=== PATIENT | female | born 1980 | race Caucasian/White ===

== ENCOUNTER 2021-09-02 16:34 | Emergency (ER) | payer MEDICAID, SELFPAY ==
[2021-09-02 16:36] VITALS: BP 119/64; PULSE 135; RESP 22; TEMP 35.7; O2SAT 100; BMI 23.1
--- NOTE | 2021-09-02 16:56 | EKG12_ITS ---
Test Reason : DIZZY Blood Pressure : / mmHG Vent. Rate : 110 BPM Atrial Rate : 110 BPM P-R Int : 122 ms QRS Dur : 090 ms QT Int : 358 ms P-R-T Axes : 077 040 065 degrees QTc Int : 484 ms Sinus tachycardia Otherwise normal ECG Confirmed by PRINCE DIXON, ABIGAIL ([id number]), city editor MICH CASTELLANO ([id number]) on 09/05/2021 10:48:26 AM Referred By: Confirmed By:ABIGAIL MORRISON MD
--- NOTE | 2021-09-02 17:09 | EX.ED.DYSGE1 ---
HPI History of Present Illness Chief Complaint: Dizziness Detail of Chief Complaint: Lightheadedness, total body tingling, nausea vomiting, shortness of breat Informant: patient Onset/Context/Timing Onset: Today Context: Sudden Onset Timing: Continuous (The shortness of breath and tingling are continuous. Nausea and vomiting is intermittent) Quality: Shortness of breath nausea vomiting Location: Respiratory, GI and generalized Current Severity: Moderate Maximum Severity: Severe Worsened by: Nothing Relieved by: Patient states she gets Benadryl when she is taken to [facility] Associated Symptoms Associated Symptoms: No infectious symptoms Narrative Narrative: Patient is a 41-year-old woman status post gastric bypass surgery who presents with muscle spasms of her hand, shortness of breath, total body tingling with nausea and vomiting. Patient did have a history of type 2 diabetes related to obesity. Since she is no longer obese she no longer has type 2 diabetes. She denies fever, chills night sweats. She denies ocular, visual auditory symptoms. She denies cough. Denies pleuritic chest pain. Denies history of VTE. She does report diarrhea. She has had no ill contacts. She denies urologic symptoms. Prior similar symptoms: Yes Recent Illness/Hospitalization: No PFSH PFSH Home Medications benzonatate 200 mg PO TID PRN PRN #20 capsule 01/03/16 [Rx Last Taken Unknown] doxycycline hyclate 100 mg PO BID #20 capsule 01/03/16 [Rx Last Taken Unknown] buspirone 5 mg PO DAILY 09/02/21 [History Last Taken Unknown] ondansetron 4 mg PO Q8H PRN PRN #10 tab 09/02/21 [Rx Last Taken Unknown] sertraline 50 mg PO QHS 09/02/21 [History Last Taken Unknown] Allergy/AdvReac Type Severity Reaction Status Date / Time No Known Allergies Allergy Verified 09/02/21 16:36 Surgical History (Updated 09/02/21 @ 17:32 by Lynnette Zhang) History of gastric bypass Social History (Updated 09/02/21 @ 17:[address] Amilcar Rhodes MD) household members: none Smoking Status: Never smoker alcohol intake: current Alcohol type: other ROS ROS ED Constitutional Constitutional ED: Reports weight loss; Denies chills, fever(s), subjective or sweats Eyes Eyes: Denies blurry vision, change in vision or diplopia ENT ENT ED: Denies ear pain, rhinorrhea or sore throat Cardiovascular Cardiovascular: Denies chest pain, orthopnea, palpitations, paroxysmal nocturnal dyspnea or racing heartbeat Respiratory/Chest Respiratory/Chest: Reports dyspnea; Denies cough, dyspnea on exertion, orthopnea, paroxysmal nocturnal dyspnea or sputum Gastrointestinal Gastrointestinal: Reports diarrhea, nausea and vomiting; Denies abdominal pain, constipation or melena Genitourinary Genitourinary ED: Denies dysuria, hematuria or urinary frequency Musculoskeletal Musculoskeletal: Denies arthralgias, back pain, myalgias or neck pain Neurologic Neurologic: Reports paresthesias; Denies headache(s) or weakness Endocrine Endocrinology: Denies polydipsia, polyphagia or polyuria Hematologic/Lymphatic Hematologic/Lymphatic: Denies anemia, easy bleeding or easy bruising EXAM Physical Exam Const Vital Signs: 09/02/21 16:36 09/02/21 17:32 09/02/21 19:21 Temperature 96.2 F L Temperature Source Temporal Pulse Rate 135 H 89 Respiratory Rate 22 H 15 Respiratory Effort Normal Non-Labored Respiratory Pattern Normal Blood Pressure 119/64 Blood Pressure Mean 82 Pulse Ox 100 Oxygen Delivery Method Room Air Positive well nourished and well developed; Negative for obese, cachectic, contractures or unkempt General Appearance ED: well developed and pallor; Negative for unkempt, cachectic, contractures, cyanotic or diaphoretic Nutritional Appearance: Negative for cachectic or obese HEENT HEENT Narrative: Head is atraumatic normocephalic. Ears normal. Nares patent. Posterior pharynx unremarkable. Mucosa is dry. Eyes PERRL and EOMs intact bilaterally General Eye ED: Negative for pale conjunctiva or scleral icterus Neck no lymphadenopathy, supple and No no JVD Resp normal respiratory effort and clear to auscultation bilaterally Cardio regular rhythm, S1 normal heart sound, S2 normal heart sound and no murmurs Rate: tachycardic GI normal to inspection, nondistended, normoactive bowel sounds and non-tender Palpation: soft Back/Spine no CVA tenderness Cervical Spine: Negative for cervical spine tenderness Thoracic Spine / Upper Back: Negative for thoracic spinal tenderness or paraspinal muscle tenderness Extremity normal to inspection General Extremety ED: Negative for edema or tenderness General Extremity: Negative for edema Neuro oriented x3, CN's II-XII intact bilaterally and no sensory deficits noted Neuro Narrative: DTR are brisk. Patient has 4 beats of clonus at the ankles. Negative Babinski sign. Positive's Chvostek sign. Positive Trousseau sign. Sensorium / Orientation: alert Motor Exam: strength 5/5 throughout Psych mental status grossly normal Appearance: Negative for unkempt Skin no rashes or lesions noted and no wounds General Skin Exam: jaundice and pallor; Negative for elasticity normal MDM MDM MDM Narrative Medical decision making narrative: Does have symptoms of hyperventilation. In light of prior history of gastric bypass surgery need to rule out electrolyte abnormality as cause. Psychogenic cause infectious cause will obtain appropriate blood work to assess. She was treated with Zofran for her nausea and vomiting and clinically she appears dehydrated. 1 L of normal saline was ordered. Patient reports persistent nausea. She has had no further vomiting in the emergency department. She had no diarrhea during her stay. Lab Data Attestation: I reviewed the patient's lab results. Lab results narrative: Glucose is slightly evaded 130. Lipase is normal. CBC is unremarkable. Labs: Laboratory Results - last 24 hr 09/02/21 09/02/21 09/02/21 17:15 17:15 17:30 WBC 9.4 RBC 4.66 Hgb 13.5 Hct 40.8 MCV 87.6 MCH 29.0 MCHC 33.1 RDW Std Deviation 42.8 RDW Coeff of [place] 13.5 Plt Count 328 MPV 10.4 Immature Gran % (Auto) 0.500 Neut % (Auto) 75.0 H Lymph % (Auto) 18.0 L [place] % (Auto) 5.9 Eos % (Auto) 0.1 Baso % (Auto) 0.5 Absolute Neuts (auto) 7.1 Absolute Lymphs (auto) 1.70 Nucleated RBC % 0 Sodium Cancelled Potassium Cancelled Chloride Cancelled Carbon Dioxide Cancelled Anion Gap Cancelled BUN Cancelled Creatinine Cancelled Estim Creat Clear Calc Cancelled Est GFR (MDRD) Af Amer Cancelled Est GFR (MDRD) Non-Af Cancelled BUN/Creatinine Ratio Cancelled Glucose Cancelled Calcium Cancelled Total Bilirubin Cancelled AST Cancelled ALT Cancelled Alkaline Phosphatase Cancelled Total Protein Cancelled Albumin Cancelled Globulin Cancelled Albumin/Globulin Ratio Cancelled Lipase 60 L 09/02/21 17:32 WBC RBC Hgb Hct MCV MCH MCHC RDW Std Deviation RDW Coeff of [place] Plt Count MPV Immature Gran % (Auto) Neut % (Auto) Lymph % (Auto) [place] % (Auto) Eos % (Auto) Baso % (Auto) Absolute Neuts (auto) Absolute Lymphs (auto) Nucleated RBC % Sodium 137 Potassium 3.5 Chloride 101 Carbon Dioxide 23.0 Anion Gap 13 BUN 18 Creatinine 0.85 Estim Creat Clear Calc 84.70 Est GFR (MDRD) Af Amer 95 Est GFR (MDRD) Non-Af 78 BUN/Creatinine Ratio 21.2 H Glucose 130 H Calcium 9.0 Total Bilirubin 0.50 AST 43 H ALT 29 Alkaline Phosphatase 71 Total Protein 8.0 Albumin 3.8 Globulin 4.2 Albumin/Globulin Ratio 0.9 Lipase Discharge Plan Triage Chief Complaint: Dizziness ED Provider: Amilcar Rhodes Dx/Rx/DC Orders Clinical Impression: Abdominal pain, vomiting, and diarrhea, Dehydration, mild, Alcohol consumption binge drinking Instructions: ED Dehydration (Adult), ED Vomiting and Diarrhea ... Prescriptions: New ondansetron [ondansetron] 4 MG tablet 4 mg PO Q8H PRN PRN (Reason: Nausea) Qty: 10 RF: 0 No Action doxycycline hyclate 100 MG capsule 100 mg PO BID Qty: 20 RF: 0 benzonatate 100 MG capsule 200 mg PO TID PRN PRN (Reason: Cough) Qty: 20 RF: 0 buspirone 5 mg tablet 5 mg PO DAILY RF: 0 sertraline 50 mg tablet 50 mg PO QHS RF: 0 Primary Care Provider: Care Physician,No Primary Referrals: Care Physician,No Primary [Primary Care Provider] - Doctor,Your [STAFF PHYSICIAN] - 3-5 Days if not improving Disposition Disposition: Home, Self Care
[2021-09-02 17:36] LABS: Absolute Neutrophil Count 7.1 X10^3/uL (2.0-7.7); Basophil# 0.05 X10^3/uL; Basophil% 0.5 % (0-1); Eosinophil# 0.01 X10^3/uL; Eosinophils% 0.1 % (0-5); Hematocrit 40.8 % (37-47); Hemoglobin 13.5 g/dL (12.0-15.0); Mean Corp Hgb Conc 33.1 g/dL (32-36); Mean Corpuscular Volume 87.6 fL (81-99); Mean Platelet Vol. 10.4 fl (6.2-12.0); Monocyte# 0.56 X10^3/uL; Monocyte% 5.9 % (0-10); NRBC Flagged by Analyzer 0 % (0-5); Neutrophil # 7.07 X10^3/uL (2.7-7.7); Platelet Count 328 K/mm3 (150-450); RBC Distribution Width CV 13.5 % (11.6-14.6); RBC Distribution Width SD 42.8 fl (35.1-43.9); Red Blood Count 4.66 M/mm3 (4.2-5.4); White Blood Count 9.4 K/mm3 (4.4-11.0)
[2021-09-02] MEDS: Ondansetron 4 MG/2 ML Vial IV (17:52)
[2021-09-02] MEDS: 0.9% Normal Saline 1,000 ML 1000 ML IV (17:52)
[2021-09-02 18:22] LABS: Lipase 60 U/L (73-393)
[2021-09-02 19:05] LABS: ALB/GLOB Ratio 0.9 RATIO (0.9-2.4); AST(SGOT) 43 U/L (15-37); Alanine Aminotransfer ALT/SGPT 29 U/L (13-56); Albumin, Serum 3.8 g/dL (3.2-5.0); Alkaline Phosphatase 71 U/L (45-117); BUN 18 mg/dL (7-18); BUN/Creat Ratio 21.2 RATIO (10-20); Creatinine, Serum 0.85 mg/dL (0.55-1.02); EST Glomerular Filtration Rate 78 mL/min (>60); Est Glom Filt Rate - Afr Amer 95 mL/min (>60); Globulin 4.2 g/dL (2.2-4.2); Glucose 130 mg/dL (74-106); Sodium Level 137 mmol/L (136-145)
[2021-09-02 19:06] LABS: Anion Gap 13 (5-15); Chloride 101 mmol/L (98-107); Potassium 3.5 mmol/L (3.5-5.1)
[2021-09-02 19:21] VITALS: PULSE 89; RESP 15
[2021-09-02] MEDS: Metoclopramide 10 MG/2 ML Vial 5 MG IV (19:48)
[2021-09-02] MEDS: Acetaminophen 500 MG Tablet PO (19:48)
[2021-09-02 20:39] VITALS: RESP 12; O2SAT 97
== END 2021-09-02 20:40 | disposition home or self-care (01) ==
PROVIDERS: Emergency Provider Emergency Medicine
DX: E86.0 Dehydration (principal); R10.9 Unspecified abdominal pain; R19.7 Diarrhea, unspecified; R11.2 Nausea with vomiting, unspecified; Z98.84 Bariatric surgery status; Z72.89 Other problems related to lifestyle
CPT/HCPCS: 80053; 83690; 85025; 93005; 96361; 96374; 96375; 99285; J7030; A4216; J2405

== ENCOUNTER → 2024-05-02 | Outpatient (CLI) | payer MEDICAID, SELFPAY ==
--- NOTE | 2024-05-02 08:11 | BI_ITS ---
MAMMOGRAPHY - UNILATERAL SCREENING: LEFT BREAST REASON FOR EXAM: Female, 43 years old. Routine annual screening examination (unilateral). PERTINENT HISTORY: Non-contributory. TECHNIQUE: Digital examination. Mediolateral oblique (MLO) and craniocaudad (CC) views of the breast were obtained. CAD: CAD was performed on this study. COMPARISON: 11/06/2019 FINDINGS: Breast Composition: The breasts are heterogeneously dense, which may obscure small masses. No dominant mass. Increase in the number of the grouped punctate calcifications in the lower inner quadrant of the left breast at mid depth magnification views are recommended for further evaluation. No other significant abnormalities are identified. BI/SCREEN MAMM (CAD) W/JULIETH UNI L IMPRESSION: Further imaging evaluation recommended, as described above. ASSESSMENT CATEGORY: BIRADS Category 0: Incomplete. Need additional imaging evaluation. A letter regarding these results will be sent to the patient by the facility within 30 days. FOLLOW UP RECOMMENDATION: Additional Views are Recommended. (E) [id number] Approximately 10% of breast cancers are not detected by mammography. A normal mammogram should not delay biopsy of a clinically suspicious abnormality. [id number] Electronically Signed: Al Gutierrez MD at 13:31 EDT ,
== END | disposition home or self-care (01) ==
LOC: OPBI 08:10
PROVIDERS: PCP Internal Medicine; Referring Provider Internal Medicine Medical Oncology; Visit Provider Internal Medicine Medical Oncology
DX: Z12.31 Encounter for screening mammogram for malignant neoplasm of breast (principal); Z85.3 Personal history of malignant neoplasm of breast
CPT/HCPCS: 77063; 77067

== ENCOUNTER → 2024-05-20 | Outpatient (CLI) | payer MEDICAID, SELFPAY ==
--- NOTE | 2024-05-20 09:01 | BI_ITS ---
MAMMOGRAPHY - UNILATERAL DIAGNOSTIC: LEFT BREAST REASON FOR EXAM: Female, 43 years old. Abnormal screening mammogram. PERTINENT HISTORY: Personal history of breast cancer. Prior right mastectomy with a TRAM flap reconstruction. History of prior left breast reduction and lift. TECHNIQUE: Compression magnification views were obtained. CAD: Full Field Digital Mammography with Computer Added Detection was performed. COMPARISON: Comparison is made with prior study dated May 02, 2024. FINDINGS: Breast Composition: The breasts are heterogeneously dense, which may obscure small masses. The group of microcalcifications are once again visualized. These may represent dystrophic calcifications although biopsy is recommended. No other significant abnormalities are identified. BI/DIAG MAMM W/CAD, UNILAT IMPRESSION: Persistent group of microcalcifications as described in the lower inner quadrant of the left breast. Biopsy recommended. ASSESSMENT CATEGORY: BIRADS Category 4: Suspicious - Biopsy Should Be Considered. A letter regarding these results will be sent to the patient by the facility within 30 days. Approximately 10% of breast cancers are not detected by mammography. A normal mammogram should not delay biopsy of a clinically suspicious abnormality. Electronically Signed: Doug Breaux MD at 9:48 EDT ,
== END | disposition home or self-care (01) ==
LOC: OPBI 09:01
PROVIDERS: PCP Internal Medicine; Referring Provider Internal Medicine Medical Oncology; Visit Provider Internal Medicine Medical Oncology
DX: R92.8 Other abnormal and inconclusive findings on diagnostic imaging of breast (principal); Z90.11 Acquired absence of right breast and nipple; Z85.3 Personal history of malignant neoplasm of breast
CPT/HCPCS: 77065

== ENCOUNTER 2024-09-23 11:04 | Emergency (ER) | payer MEDICAID, SELFPAY ==
[2024-09-23 11:06] VITALS: BP 141/111; PULSE 100; RESP 20; TEMP 37.4; O2SAT 98; BMI 28.1
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
[2024-09-23 11:16] VITALS: O2SAT 98
--- NOTE | 2024-09-23 11:47 | ED.RN ---
PHOTOGRAPHS TAKEN PER [employer]
--- NOTE | 2024-09-23 11:57 | CT_ITS ---
INDICATION: trauma/strangulation/ASSAULT EXAMINATION: CT NECK WITH CONTRAST - CT Soft Tissue Neck W/ Contrast Injection TECHNIQUE: Helically acquired images were obtained of the neck following IV contrast. The protocol utilizes one or more of the following dose reduction techniques: automated exposure control, adjustment of mA and/or kV according to patient size,and/or use of iterative reconstruction technique. IV Contrast dosage and agent: 100 cc of Isovue-370 RADIATION DOSAGE (If Supplied By Facility): CTDIvol = ( 13.03 ) mGy, DLP = ( 449.34 ) mGycm COMPARISON: No relevant prior comparison study available FINDINGS: NASOPHARYNX: Unremarkable. SUPRAHYOID NECK: Unremarkable oropharynx, oral cavity, parapharyngeal space, and retropharyngeal space. INFRAHYOID NECK: Unremarkable larynx, hypopharynx, and supraglottis. THYROID: There is a too small to characterize low-attenuation focus within the left lobe of the thyroid gland may reflect a cyst. SALIVARY GLANDS: Unremarkable. LYMPH NODES: No cervical or supraclavicular lymphadenopathy. VASCULAR STRUCTURES: Unremarkable. VISUALIZED PORTIONS OF THE ORBITS, PARANASAL SINUSES, MASTOID AIR CELLS AND SKULL BASE: Unremarkable. BONES: There are postsurgical changes of C4-T1 with multilevel pedicle screws, posterior spinal rods and multilevel laminectomies. There is multilevel endplate spondylosis. THORACIC INLET: There is a separate dedicated CT report of the chest. CT/Soft Tissue Neck WITH Contrast IMPRESSION: No acute process identified. Multilevel postsurgical changes of the cervical spine. Electronically Signed: Connie Zayas MD at 14:23 EST ,
--- NOTE | 2024-09-23 11:57 | CT_ITS ---
INDICATION: trauma/ASSAULT EXAMINATION: CT BRAIN - CT Head or Brain W/O Contrast Injection TECHNIQUE: Multiple axial images were obtained of the head without intravenous contrast. The protocol utilizes one or more of the following dose reduction techniques: automated exposure control, adjustment of mA and/or kV according to patient size,and/or use of iterative reconstruction technique. IV Contrast dosage and agent: None. RADIATION DOSAGE (If Supplied By Facility): CTDIvol = ( 44.99 ) mGy, DLP = ( 796.11 ) mGycm COMPARISON: No relevant prior comparison study available FINDINGS: BRAIN PARENCHYMA: No intra- or extra-axial hemorrhage. No evidence of acute infarct. No intracranial mass or mass effect. There is preservation of the [place]/white matter interface. Posterior fossa structures are unremarkable. CSF SPACES: Appropriate for age. No hydrocephalus. Basal cisterns are patent. CALVARIUM, SKULL BASE, PARANASAL SINUSES AND MASTOID AIR CELLS: Clear. No discrete lytic or blastic abnormalities. There is mild right facial subcutaneous edema. ORBITS: Both globes, extraocular muscles, optic nerves and retrobulbar fat appear unremarkable. CT/Brain/Head without Contrast IMPRESSION: No acute intracranial process. Electronically Signed: Connie Zayas MD at 14:09 EST ,
--- NOTE | 2024-09-23 11:57 | CT_ITS ---
INDICATION: trauma/ASSAULT EXAMINATION: CT CHEST WITH CONTRAST - CT Chest W/ Contrast Injection TECHNIQUE: Helically acquired images were obtained of the chest following IV contrast. The protocol utilizes one or more of the following dose reduction techniques: automated exposure control, adjustment of mA and/or kV according to patient size,and/or use of iterative reconstruction technique. IV Contrast dosage and agent: 100 cc of Isovue-370 RADIATION DOSAGE (If Supplied By Facility): CTDIvol = ( 6.24 ) mGy, DLP = ( 168.33 ) mGycm COMPARISON: November 26, 2013 FINDINGS: LUNGS, PLEURA AND LARGE AIRWAYS: There is atelectasis and/or scarring within the right upper lobe. No pleural effusion or thickening. No pneumothorax. THYROID: No thyroid lesions. HEART AND PERICARDIUM: Heart size is normal. No pericardial effusion. There are no coronary artery calcifications. VESSELS: Thoracic aorta is not dilated. No aortic dissection. No obvious central pulmonary embolism although this study was not performed with the pulmonary embolism protocol. MEDIASTINUM AND JAY: No mediastinal or hilar adenopathy. Esophagus is unremarkable. No hiatal hernia. There are postsurgical changes of the right breast. UPPER ABDOMEN: The limited images of the upper abdomen demonstrate a diffusely low in attenuation liver fatty infiltration. There are postsurgical changes of the stomach. BONES: There is a left lateral fifth rib deformity consistent with an old fracture. There are healing left posterior ninth and 10th rib fractures. There is a right lateral rib deformity consistent with an old fracture. CT/Chest WITH Contrast IMPRESSION: No acute cardiopulmonary process. Bilateral rib fractures of varying chronicity including healing left ninth and 10th rib fractures. Fatty infiltration of the liver. Electronically Signed: Connie Zayas MD at 14:32 EST ,
--- NOTE | 2024-09-23 11:57 | CT_ITS ---
INDICATION: trauma/ASSAULT EXAMINATION: CT FACIAL BONES - CT Maxillofacial W/O Contrast Injection TECHNIQUE: Helically acquired images were obtained of the facial bones. A radiation dose optimization technique was used for this scan. The protocol utilizes one or more of the following dose reduction techniques: automated exposure control, adjustment of mA and/or kV according to patient size,and/or use of iterative reconstruction technique. IV Contrast dosage and agent: None. RADIATION DOSAGE (If Supplied By Facility): CTDIvol = ( 29.38 ) mGy, DLP = ( 510.73 ) mGycm COMPARISON: Head CT dated September 23, 2024 FINDINGS: SOFT TISSUES: There is mild right facial subcutaneous swelling. No discrete fluid collections. VISUALIZED PARANASAL SINUSES: Clear. VISUALIZED MASTOID AIR CELLS: Clear. FACIAL BONES, MANDIBLE AND TMJs: No displaced facial bone fracture. No lytic or blastic abnormality. There is a plate and screw fixation device within the anterior mandible. VISUALIZED DENTITION: No periodontal osseous erosion. ORBITAL CONTENTS: Both globes, extraocular muscles and retrobulbar fat appear unremarkable. CT/Sinus/Facial Bone IMPRESSION: No acute osseous injury. Right facial subcutaneous edema. Electronically Signed: Connie Zayas MD at 14:13 EST ,
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
[2024-09-23 12:36] LABS: Absolute Lymphocyte Count 0.36 X10^3/uL (0.83-4.51); Absolute Neutrophil Count 7.3 X10^3/uL (2.0-7.7); Basophil# 0.02 X10^3/uL; Basophil% 0.2 % (0-1); Hematocrit 37.5 % (37-47); Hemoglobin 12.8 g/dL (12.0-15.0); Lymphocyte # 0.36 X10^3/ul (0.83-4.51); Lymphocyte % 4.5 % (19-41); Mean Corp Hgb Conc 34.1 g/dL (32-36); Mean Corpuscular Hgb 31.1 pg (27.0-32.0); Mean Corpuscular Volume 91.2 fL (81-99); Mean Platelet Vol. 9.2 fl (6.2-12.0); Monocyte# 0.26 X10^3/uL; Monocyte% 3.2 % (0-10); NRBC Flagged by Analyzer 0 % (0-5); Neutrophil # 7.33 X10^3/uL (2.7-7.7); Neutrophil % 91.6 % (47-70); POSITIVE DIFFERENTIAL YES; Platelet Count 179 K/mm3 (150-450); RBC Distribution Width CV 14.7 % (11.6-14.6); Red Blood Count 4.11 M/mm3 (4.2-5.4)
[2024-09-23 12:52] LABS: Internal QC Validated? YES +Cl - CLEAR BKGD; Pregnancy, Serum, hCG Quali. NEGATIVE Negative
[2024-09-23 12:54] LABS: AST(SGOT) 28 U/L (15-37); Alanine Aminotransfer ALT/SGPT 18 U/L (13-56); Albumin, Serum 3.6 g/dL (3.2-5.0); Alkaline Phosphatase 90 U/L (45-117); Anion Gap 11 (5-15); BUN 14 mg/dL (7-18); Bilirubin, Direct 0.36 mg/dL (0.00-0.30); Calcium,Total 8.2 mg/dL (8.5-10.1); Chloride 96 mmol/L (98-107); Creatinine, Serum 0.52 mg/dL (0.55-1.02); EST Glomerular Filtration Rate 136 mL/min (>60); Est Glom Filt Rate - Afr Amer 165 mL/min (>60); Estimated Creatinine Clearance 151.69 ml/min; Globulin 4.1 g/dL (2.2-4.2); Glucose 105 mg/dL (74-106); Potassium 3.4 mmol/L (3.5-5.1); Protein, Total 7.7 g/dL (6.4-8.2); Sodium Level 134 mmol/L (136-145)
[2024-09-23 13:05] VITALS: BP 136/89; PULSE 104; RESP 20; O2SAT 98
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
--- NOTE | 2024-09-23 13:20 | RAD_ITS ---
INDICATION: injury EXAMINATION/TECHNIQUE: X-RAY - RIGHT XR Hand Min 3 Views 3 VIEWS COMPARISON: No relevant prior comparison study available FINDINGS: SOFT TISSUES: No soft tissue swelling or gas. No radiopaque foreign body. BONES/JOINTS: No acute fracture or subluxation.. Normal alignment. Preservation of the joint space.. No sclerotic or destructive changes observed. RAD/Hand Min 3 Views IMPRESSION: No acute osseous injury. Electronically Signed: Connie Zayas MD at 14:15 EST ,
[2024-09-23] MEDS: Acetaminophen 500 MG Tablet 1000 MG PO (13:31)
[2024-09-23] MEDS: Ondansetron ODT 4 MG Tablet PO (13:31)
[2024-09-23 13:52] LABS: Mucous, Urine 0 SEEN /hpf (<or=2+); Red Blood Cells-Urine 0 SEEN /hpf (0-5)
[2024-09-23 13:54] LABS: Color, Urine Yellow (Yellow); Glucose, Dipstick Normal (Normal); Leukocyte Esterase-Dipstick 100 /ul (Negative); Nitrite-Dipstick Positive (Negative); Occult Blood-Urine 10 /ul (Negative); Protein-Dipstick 15 mg/dl (Negative); Specific Gravity, Urine 1.005 (1.002-1.030); Urine Bilirubin Dipstick Negative (Negative); Urine Clarity Sl. Cloudy (Clear); Urine Urobilinogen 1 mg/dl (Normal)
[2024-09-23 13:56] LABS: Ketone-Dipstick 150 mg/dl (Negative)
[2024-09-23 14:02] LABS: White Blood Cells 10-25 SEEN /hpf (0-5)
[2024-09-23 14:03] LABS: Bacteria 1+ /hpf (None Seen); Squamous Epithelial Cells - UA 0-5 SEEN /hpf (5-10)
[2024-09-23 15:13] VITALS: BP 117/74; PULSE 65; RESP 18; TEMP 36.4; O2SAT 96
== END 2024-09-23 15:15 | disposition home or self-care (01) ==
PROVIDERS: Emergency Provider Emergency Medicine; PCP Internal Medicine; Visit Provider Emergency Medicine
DX: S00.83XA Contusion of other part of head, initial encounter (principal); N39.0 Urinary tract infection, site not specified; S60.221A Contusion of right hand, initial encounter; M54.2 Cervicalgia; Y04.8XXA Assault by other bodily force, initial encounter; Z79.899 Other long term (current) drug therapy
CPT/HCPCS: 70450; 70486; 70491; 71260; 73130; 80048; 80076; 81001; 84703; 85025; 87077; 87086; 87088; 87186; 99285; Q9967; A4216

== ENCOUNTER → 2024-10-02 | Outpatient (CLI) | payer MEDICAID, SELFPAY ==
--- NOTE | 2024-10-02 12:24 | US_ITS ---
STUDY: ULTRASOUND BREAST - LEFT REASON FOR EXAM: Female, 44 years old. Abnormal screening mammogram. Left breast pain. History of prior breast reduction surgery. TECHNIQUE: Axial and longitudinal images of the LEFT breast were performed with a high resolution ultrasound transducer. # OF IMAGES: 27 COMPARISON: None. FINDINGS: LEFT Breast: The lower inner quadrant of the left breast was examined with ultrasound. There is 1 cm x 0.8 cm x 0.4 cm echogenic nodule with posterior acoustical shadowing. This most likely represents the calcific density on the mammogram. Biopsy recommended. US/Breast Limited Unilateral IMPRESSION: 1 cm x 0.8 cm x 0.4 cm echogenic nodule with posterior acoustical shadowing and irregular appearance at the 7:00 position of the breast of 4 cm from the nipple. Biopsy recommended. ASSESSMENT CATEGORY: BIRADS Category 4: Suspicious - Biopsy Should Be Considered. A letter regarding these results will be sent to the patient by the facility within 30 days. Electronically Signed: Doug Breaux MD at 10:52 EST ,
== END | disposition home or self-care (01) ==
LOC: OPUS 12:24
PROVIDERS: PCP Internal Medicine; Referring Provider Surgery; Visit Provider Surgery
DX: N64.4 Mastodynia (principal); R92.0 Mammographic microcalcification found on diagnostic imaging of breast
CPT/HCPCS: 76642

== ENCOUNTER → 2024-10-16 | Outpatient (CLI) | payer MEDICAID, SELFPAY ==
--- NOTE | 2024-10-16 | BRBX_PTH ---
PATIENT: GEOFF MASTERS LOC: [facility]US U#:[id number] AGE/SX: 44/F ROOM: RE10/16/[address]: Mariela Johnson PA-C : 1980 BED: DIS: 10/16/2024 SPEC #: [id number] RECD: 10/16/24 14:00 STATUS: NGUYỄN JORDAN #: [id number] POONAM: 10/16/24 00:[address]: Mariela Johnson DEPT: SURGICAL PATHOLOGY RECD BY: Chris Marc ENTERED: 10/17/24 11:00 SP TYPE: BREAST BX OT DR: Dr. Nic Duarte MD Tissues: Left breast, NOS Procedures: Surgery Specimen Level IV HEADER OPERATION: Ultrasound guided breast biopsy PRE-OP DIAGNOSIS: Left breast mass TISSUE SUBMITTED: Left breast 7o'clock, 4cm from nipple MICROSCOPIC DIAGNOSIS Left breast 7o'clock, 4cm from nipple, core biopsy: Fragments of fibroadipose tissue with dense fibrosis and dystrophic calcifications. Negative for atypia or malignancy. 10/20/2024 COMMENT Breast tissue is not identified in the specimen. Correlation with clinical, radiologic findings and appropriate follow up are necessary. MICROSCOPIC DESCRIPTION Slides are reviewed. GROSS DESCRIPTION Received in fixative is one container labeled with the patient's name and designated Left breast biopsy. The specimen consists of multiple elongated fragments of olvera-yellow fibroadipose tissue that in aggregate measure 2.0 x 1.0 x 0.1 cm. The specimen is totally submitted in one cassette. 10/17/2024 TC:5 CPT:94621
--- NOTE | 2024-10-16 12:18 | US_ITS ---
STUDY: ULTRASOUND BREAST - LEFT REASON FOR EXAM: Female, 44 years old. Ultrasound-guided breast biopsy. TECHNIQUE: Axial and longitudinal images of the LEFT breast were performed with a high resolution ultrasound transducer. # OF IMAGES: 47 COMPARISON: Comparison is made with prior study October 02, 2024. FINDINGS: LEFT Breast: The nodular density at the 7:00 position of the breast of 4 cm from the nipple was biopsied. 5 samples were submitted. Calcification is seen within the specimen. US/US Breast Biopsy 1st Lesion IMPRESSION: Ultrasound-guided biopsy with demonstration of calcifications. Electronically Signed: Doug Breaux MD at 13:09 EST ,
--- NOTE | 2024-10-16 13:39 | PCM.OPRPT ---
Operative Report (Standard) Operative Information Date of Procedure: 10/16/24 Pre-Operative Diagnosis: Left breast mass/calcifications Post-Operative Diagnosis: Same Surgery/Procedure Performed: Ultrasound-guided left breast biopsy brim and crown presser: No Type of Anesthesia: Local Procedure Start Time: 13:20 Procedure Stop Time: :27 Select all DRAINS/GRAFTS/IMPLANTS that apply: Implanted device Implanted device details: Bard dual ultracoil clip Estimated Blood Loss: < 10 cc Specimen collected: Yes Description of specimen(s) removed: Left breast 7:00 4 cm from nipple Description of surgery: Procedure: Left ultrasound-guided core biopsy Indications: 44 year-old female with calcified nodule at 7:00 in the left breast for centimeters from the nipple. Risk benefits were discussed the patient and she elected to proceed with ultrasound guided core biopsy with clip placement Description of procedure: Patient was brought into the ultrasound room in the left breast was marked. A timeout was completed verifying correct patient, procedure, site, specially, prior to beginning procedure. The left breast was prepped and draped in usual sterile fashion and using local anesthesia was obtained with 1% lidocaine with epi. The lesion was located with the ultrasound. Small incision was made with 11 blade to introduced the mammotome through the skin. Under ultrasound guidance multiple core samples were obtained using then 13-gauge mammotome and sent in formalin for pathology. The Bard dual ultracoil clip was then deployed into the biopsy cavity under ultrasound guidance and a picture was taken. Upon completion procedure hemostasis was obtained and a Steri-Strip and OpSite were placed. Patient was then taken to the mammography suite for clip verification. The clip was verified. The patient tolerated the procedure well and was discharged from the breast imaging department good condition. Surgical Findings: X-ray taken of the specimen representation of the calcifications were removed Complications Complications: No
== END | disposition home or self-care (01) ==
LOC: OPUS 12:18
PROVIDERS: PCP Internal Medicine; Referring Provider Physician Assistant; Visit Provider Physician Assistant
DX: N64.4 Mastodynia (principal); C50.411 Malignant neoplasm of upper-outer quadrant of right female breast; Z17.0 Estrogen receptor positive status [ER+]
CPT/HCPCS: 19083; 88305

== ENCOUNTER → 2025-05-04 | Outpatient (CLI) | payer MEDICAID, SELFPAY | END | disposition home or self-care (01) | PROVIDERS: PCP Internal Medicine; Referring Provider Internal Medicine Medical Oncology; Visit Provider Internal Medicine Medical Oncology | DX: Z12.31 Encounter for screening mammogram for malignant neoplasm of breast (principal) | CPT/HCPCS: 77063; 77067 ==